=== PATIENT | female | born 1940 | race Caucasian/White ===

== ENCOUNTER 2019-07-10 18:21 | Emergency (ER) | payer MEDICARE, BC ==
[~2019-07-10] VITALS: Ht 157.5 cm; Wt 76.2 kg
[2019-07-10] MEDS ORDERED: PRED20TA PO (18:53)
[2019-07-10] MEDS ORDERED: predniSONE 20 mg tablet PO ONE (18:55)
[2019-07-10 19:03] VITALS: BP 149/94
== END 2019-07-10 19:06 | disposition home or self-care (01) ==
LOC: ER 18:23
DX: L50.8 Other urticaria (principal); T78.40XA Allergy, unspecified, initial encounter; Z88.2 Allergy status to sulfonamides; Z79.899 Other long term (current) drug therapy; Y92.89 Other specified places as the place of occurrence of the external cause
CPT/HCPCS: 99283; J7512